=== PATIENT | female | born 1990 ===

== ENCOUNTER 2024-10-24 00:55 | Emergency (ER) | payer SELFPAY ==
[2024-10-24 01:06] VITALS: RESP 18
[2024-10-24 01:12] VITALS: RESP 18
--- NOTE | 2024-10-24 01:12 | ED.GENADUL_ITS ---
Discharge Plan Disposition Patient Disposition: [facility] Condition: Stable Discharge Details Clinical Impression: Encounter for medical clearance for patient hold Primary Care Provider: Unknown,Unknown ED Provider: Tierra Braxton Discharge Instructions Instructions: Medication Safety, Adult Additional Instructions: You were seen in the emergency department today for evaluation of a medical clearance examination prior to police hold. In our department you had an evaluation that did not reveal any acute injuries or illnesses that required you to stay at the hospital. You were medically cleared but can always return to the emergency department if you develop any concerning symptoms. We recommend that you follow-up with your primary care provider with any specific concerns. Thank you for allowing us to be part of your care. HPI General Mode of arrival: ambulatory . Date/Time Provider Initiated Documentation: 10/24/24 01:12 . Limitations to Documentation: no limitations . Information obtained by: patient, police and old records reviewed . HPI Narrative: HPI: This is a 33-year-old female patient without reported medical history who is presenting for medical clearance examination prior to police hold. The patient was brought in by [facility] police with a concern for substance use. The patient reports that she was in her car stopped on the side of the road attempting to locate something. PD brought her in for a blood draw, which the patient refused. She also refuses vital signs and physical touch for assessment. The patient reports that prior to this event she was feeling normal for her. She states that she has not had any recent illness or injuries. She has no history of diabetes or other severe medical problems, and has been taking her home medications as prescribed. These include gabapentin and Adderall. She reports that she has not been taking any extra medications and has not missed doses. She denies substance use including alcohol or other illicit substances. Denies suicidal or homicidal ideation. Exam: Gen: Awake and alert, verbally agitated HEENT: Non-icteric sclera, pupils equal and reactive, EOMs full with no significant nystagmus Neck: Supple Lungs: No apparent respiratory distress, normal respiratory effort. CV: Appears well perfused Abdomen: Non-distended MSK: Moves 4 extremities without apparent limitation in ROM within the limitations of her hands cuffs Skin: Visualized skin without rashes, cyanosis. Neuro: Normal Gait, no obvious focal deficits or facial asymmetry. Speaks in full, clear sentences. Standing with feet parallel without wobbling or unsteadiness Psych: Denies suicidal or homicidal ideation MDM: This is a 33-year-old female patient presenting for evaluation for medical clearance prior to PD hold. At this time, the patient is without acute medical complaint, has no suicidal or homicidal ideation and does not have medical history which would require further workup with laboratory studies or imaging. It is unfortunate that the patient will not allow us to take a blood pressure or pulse, though she appears well perfused, with an intact neuro examination, and I have minimal concern for her hemodynamic stability based on my limited clinical examination. ED Course: A smart medical clearance form was completed, and the patient was released to police custody. Tierra Braxton MD General Stated Complaint: GenMedical SARKIS: 5 Course Vital Signs Vital signs: Vital Signs Respiratory Rate 18 10/24/24 01:06 Respiratory Rate 18 10/24/24 01:06 Comment Pt refused vital signs. Respirations equal, unlabored. Patient ambulatory in triage. Appears well perfused. 10/24/24 01:06 Medical Decision Making Quality:SDOH Health Related Social Needs: No Data to Display PFSH All Active Problems (Updated 10/24/24 @ 01:14 by Tierra Braxton MD) Encounter for medical clearance for patient hold (Acute) Social History Smoking risk assessment performed?: No Details: pt refuses to answer questions
== END 2024-10-24 01:12 ==
PROVIDERS: Emergency Provider Emergency Medicine
DX: Z04.89 Encounter for examination and observation for other specified reasons (principal)